=== PATIENT | male | born 1965 | race Two or more races ===

== ENCOUNTER 2017-11-02 11:07 | Emergency (ER) | payer SELFPAY ==
[~2017-11-02] VITALS: Ht 177.8 cm; Wt 93.0 kg
[2017-11-02 11:17] VITALS: BP 114/68
[2017-11-02] MEDS ORDERED: MECLIZINE HCL 25 MG TAB PO ONE (12:00)
== END 2017-11-02 13:04 | disposition home or self-care (01) ==
LOC: ER 11:07
DX: R42 Dizziness and giddiness (principal)
CPT/HCPCS: 70450; 74176; 99284; J8597